=== PATIENT | male | born 1940 | race African-American/Black ===

== ENCOUNTER 2019-08-31 21:47 | Inpatient (IN) | payer MEDICARE, OTHER ==
[~2019-08-31] VITALS: Ht 167.6 cm; Wt 84.4 kg
[2019-08-31 22:00] VITALS: BP 101/65
--- NOTE | 2019-08-31 22:30 | NUR ---
GEM CUTTERRN CARDIOVASCULAR NOTES PATIENT TRANSFERRED FROM [facility] ER VIA AMBULANCE. RECEIVED REPORT FROM HEAD COUNSELOR, MARCELLO, AT 2030. ALERT & ORIENTED X 2-3. LEFT SIDED WEAKNESS PRESENT. NO FACIAL DROOPING NOTED. LEFT EYE DEVIATES SLIGHTLY. WEAK FISH TENDER ON LEFT ARM. WEAKNESS IN LEFT LEG. IV PRESENT ON RIGHT WRIST, SIZE 22, INTACT & PATENT, HEP LOCK. VITAL SIGNS - BP: 101/65 HR: 73 RR: 18 TEMP: 98.6 SPO2: 96 ON ROOM AIR. SKIN ABRASION NOTED ON LEFT IZQUIERDO. PICTURES TAKEN AND PLACED IN CHART. BELONGING'S LIST COMPLETED AND PLACED IN CHART. NO S/S OF ACUTE RESPIRATORY DISTRESS OR SOB. NO COMPLAINTS OF PAIN AT THIS TIME. BED SET IN LOWEST POSITION & LOCKED, SEMI-MONTGOMERY'S POSITION, SIDE RAILS UP X3, CALL LIGHT WITHIN REACH. WILL CONTINUE TO MONITOR.
[2019-08-31 22:40] VITALS: BP 101/65
[2019-09-01] VITALS (7 sets, daily range): BP systolic 102–131; BP diastolic 46–96
[2019-09-01] MEDS ORDERED: hydrALAZINE HCL IV 20 MG VIAL IV PRN
[2019-09-01] MEDS ORDERED: MAGNESIUM HYDROXIDE 30 ML UDC PO PRN
[2019-09-01] MEDS ORDERED: ACETAMINOPHEN 325 MG TABLET PO PRN
[2019-09-01] MEDS ORDERED: ONDANSETRON HCL/PF 4 MG/2 ML VIAL IVP PRN
[2019-09-01] MEDS ORDERED: MAG HYDROX/AL HYDROX/SIMETH 30 ML UDC PO PRN
[2019-09-01] MEDS ORDERED: HYDROCODONE/APAP 5/325MG 1 EACH TABLET PO PRN
[2019-09-01] MEDS ORDERED: ZOLPIDEM TARTRATE 5 MG TABLET PO PRN
[2019-09-01] MEDS ORDERED: Z GUARD REMEDY 2 OZ OINT TP PRN
[2019-09-01] MEDS ORDERED: METO-357 PO (00:04)
[2019-09-01] MEDS ORDERED: RANI300T4 PO (00:04)
[2019-09-01] MEDS ORDERED: WARF10TA22 PO (00:04)
[2019-09-01] MEDS ORDERED: LISI2.5T2 PO (00:04)
[2019-09-01] MEDS ORDERED: FOLIC ACID (00:04)
[2019-09-01] MEDS ORDERED: HYDR50CA5 PO (00:04)
[2019-09-01] MEDS ORDERED: WARF2.5T85 PO (00:04)
[2019-09-01] MEDS: ATORVASTATIN 40 MG TABLET PO SCH ×2 (00:39→21:04)
--- NOTE | 2019-09-01 06:51 | NUR ---
OPTICIAN APPRENTICE CLOSING NOTES PATIENT SLEEPING IN BED, EASY TO AWAKEN. ALERT & ORIENTED X 2-3. ON ROOM AIR. NO S/S OF ACUTE RESPIRATORY DISTRESS AND NO COMPLAINTS OF PAIN AT THIS TIME. TELE MONITOR READING SINUS RHYTHM, HR: 73. IV PRESENT ON RIGHT WRIST, SIZE 22, HEP LOCKED. BED SET IN LOWEST POSITION AND LOCKED, SIDE RAILS UP X2, CALL LIGHT WITHIN REACH. WILL ENDORSE TO DAY SHIFT NURSE TO FOLLOW PLAN OF CARE.
[2019-09-01 06:53] LABS: BASOPHILS % (AUTO) 0.7 % (0.0-2.0); EOSINOPHILS % (AUTO) 1.2 % (0.0-6.0); HEMATOCRIT 44 % (39-51); HEMOGLOBIN 14.5 g/dL (13.5-17.5); LYMPHOCYTES % (AUTO) 33.5 % (20.0-44.0); MEAN CORPUSCULAR HGB CONC 33 g/dl (31.0-36.0); MEAN CORPUSCULAR VOLUME 88 fL (80-96); MONOCYTES # (AUTO) 0.9 /CMM (0.1-1.30); MONOCYTES % (AUTO) 15.7 % (2.0-12.0); NEUTROPHILS # (AUTO) 2.9 /CMM (1.8-8.9); NEUTROPHILS % (AUTO) 48.9 % (43.0-81.0); PLATELET COUNT (AUTO) 201 /CMM (150-450); RED BLOOD CELL COUNT(AUTO) 4.93 MIL/uL (4.5-6.0); WHITE BLOOD COUNT (AUTO) 5.9 K/uL (4.3-11.0)
[2019-09-01 07:08] LABS: ALBUMIN 3.3 g/dL (3.4-5.0); BILIRUBIN,TOTAL 0.6 mg/dL (0.2-1.0); CALCIUM, SERUM 9.4 mg/dL (8.5-10.1); CREATININE 1.2 mg/dL (0.6-1.3); MAGNESIUM 2.2 mg/dL (1.8-2.4); PHOSPHORUS 2.5 mg/dL (2.5-4.9); POTASSIUM 4.1 mmol/L (3.5-5.1); TOTAL PROTEIN, SERUM 8.8 g/dL (6.4-8.2)
[2019-09-01 07:17] LABS: THYROID STIMULATING HORMONE 1.782 uIU/mL (0.358-3.74)
--- NOTE | 2019-09-01 07:30 | NUR ---
ROLLER SETTER NOTES PATIENT AWAKE IN BED, IN NO RESPIRATORY DISTRESS, NO C/O PAIN AT THIS TIME. PATIENT ON DIGITAL MEDIA STRATEGIST READING SR 84. SKIN WARM TO TOUCH. IV SL ON THE RT WRIST #22G, INTACT AND PATENT. PATIENT'S NEEDS ATTENDED, BED ON LOWEST LOCKED POSITION. WILL CONTINUE TO MONITOR.
[2019-09-01] MEDS: ASPIRIN EC 81 MG TABLET.DR PO SCH (09:06)
[2019-09-01] MEDS: LEVETIRACETAM (250 MG) 250 MG TABLET PO SCH ×2 (09:06→20:18)
[2019-09-01] MEDS: ENOXAPARIN SODIUM 40 MG/0.4 ML DISP.SYRIN SQ SCH (09:07)
--- NOTE | 2019-09-01 14:43 | NUR ---
employment services director consult requested for stroke. Pt is a 79 year old male admitted to [facility] for possible stroke. Pt currently lives with four roommates at [address] [place] [address], in [place], [facility]; [phone]. Pt did not want to provide information on next of kin or person to notify, and one is not listed on his face sheet. Pt states that he is not and does not have any children. Pt states that he is retired and receives SSI monthly benefits, but was not able to recall the amount. Pt states that he receives support from his roommates for activities of daily living and was receptive to in-home supportive services referrals. MARITA provided pt with information and an application to [facility] IHSS program through the [employer] [Address: [facility] [address], [place] [address]; ]. Pt denies suicidal and homicidal ideation at this time. Pt denies symptoms of depression at this time. PHQ-9 assessment completed. No further social work supervisor needed at this time. SW will remain available should any needs arise.
[2019-09-01] MEDS ORDERED: DONE10TA44 PO (17:41)
[2019-09-01] MEDS ORDERED: CYAN10006 IJ (17:41)
[2019-09-01] MEDS ORDERED: DICLOFENAC GEL (17:41)
[2019-09-01] MEDS ORDERED: CARB-93 PO (17:41)
[2019-09-01] MEDS ORDERED: TRAM50TA2 PO (17:41)
[2019-09-01] MEDS ORDERED: HYDR50TA61 PO (17:41)
--- NOTE | 2019-09-01 18:45 | NUR ---
SALES FORECAST ANALYST NOTES PATIENT AWAKE IN BED, NO RESPIRATORY DISTRESS, NO C/O PAIN AT THIS TIME. PATIENT ON CABLE FORMER READING SR 86. PATIENT'S NEEDS ATTENDED. BED ON LOWEST LOCKED POSITION, CALL LIGHT WITHIN REACH. WILL ENDORSE TO ONCOMING NURSE.
--- NOTE | 2019-09-01 19:28 | NUR ---
MECHANIC ASSISTANT RECEIVE PT IN BED, A/O X 3, SR 84 NO S/S OF DISTRESS, STABLE,. SAFETY MEASURES AT ALL TIMES. WILL CONTINUE TO MONITOR.
[2019-09-01] MEDS ORDERED: WARFARIN SODIUM 1 MG TABLET PO ONE (20:00)
[2019-09-01] MEDS ORDERED: WARFARIN SODIUM 2.5 MG TABLET PO SCH (20:00)
[2019-09-02] VITALS: BP 97/62
[2019-09-02 04:00] VITALS: BP 125/77
--- NOTE | 2019-09-02 06:16 | NUR ---
MS RN PT ASLEEP AND EASILY AWAKEN. RESPIRATIONS EVEN AND UNLABORED. NO S/S OF DISTRESS O2 SAT 100%. NEEDS ATTENDED AND ANTICIPATED, KEPT CLEAN, DRY AND COMFORTABLE. OFFLOAD HEELS AND ELBOWS AT ALL TIMES. ASSISTED REPOSITION EVERY 2 HOURS. SAFETY MEASURES AT ALL TIMES. WILL ENDORSE NEXT SHIFT POC. Addendum: 09/02/19 at 0620 by TINO PROCTOR RN SR 64 HR ON TUBE MILL OPERATOR
--- NOTE | 2019-09-02 07:36 | NUR ---
TEXTED DR. FUENTES FOR MRI APPROVAL.
[2019-09-02 08:00] VITALS: BP 124/79
[2019-09-02 08:02] LABS: BASOPHILS % (AUTO) 0.8 % (0.0-2.0); EOSINOPHILS % (AUTO) 2.8 % (0.0-6.0); HEMATOCRIT 42 % (39-51); HEMOGLOBIN 14.1 g/dL (13.5-17.5); LYMPHOCYTES # (AUTO) 2.3 /CMM (0.8-4.8); LYMPHOCYTES % (AUTO) 40.2 % (20.0-44.0); MEAN CORPUSCULAR HGB CONC 33 g/dl (31.0-36.0); MEAN CORPUSCULAR VOLUME 89 fL (80-96); MONOCYTES # (AUTO) 0.9 /CMM (0.1-1.30); MONOCYTES % (AUTO) 16.2 % (2.0-12.0); NEUTROPHILS # (AUTO) 2.3 /CMM (1.8-8.9); PLATELET COUNT (AUTO) 205 /CMM (150-450); RED BLOOD CELL COUNT(AUTO) 4.77 MIL/uL (4.5-6.0); WHITE BLOOD COUNT (AUTO) 5.7 K/uL (4.3-11.0)
[2019-09-02 08:16] LABS: CREATININE 1.3 mg/dL (0.6-1.3); POTASSIUM 4.2 mmol/L (3.5-5.1)
[2019-09-02] MEDS: LEVETIRACETAM (250 MG) 250 MG TABLET PO SCH ×2 (09:57→22:19)
[2019-09-02] MEDS: ASPIRIN EC 81 MG TABLET.DR PO SCH (09:57)
[2019-09-02] MEDS: ENOXAPARIN SODIUM 40 MG/0.4 ML DISP.SYRIN SQ SCH (09:58)
[2019-09-02 14:19] LABS: EOSINOPHILS % (MANUAL) 4 % (0-4); LYMPHOCYTES % (MANUAL) 32 % (16-48); MONOCYTES % (MANUAL) 13 % (0-11.0); NEUTROPHILS % (MANUAL) 51 (42-76)
[2019-09-02 16:00] VITALS: BP 115/65
[2019-09-02] MEDS ORDERED: WARFARIN SODIUM 1 MG TABLET PO SCH (17:00)
--- NOTE | 2019-09-02 17:13 | NUR ---
CAT DOG OR OTHER PET GROOMER NOTES [facility] CALLED REGARDING PATIENT'S MRI RESULTS, GAVE [facility]'S NUMBER FOR DR. MARADIAGA TO SPEAK TO DR. SEGURA REGARDING THE FINDINGS.
--- NOTE | 2019-09-02 18:16 | NUR ---
MOTION PICTURE SCENE BUILDER NOTES SPOKE TO DR. SEGURA REGARDING PATIENT'S MRI RESULTS. PER MD ORDER DISCONTINUE LOVENOX 40MG.
--- NOTE | 2019-09-02 19:20 | NUR ---
RN NOTES/ASSESSMENT: RECEIVED REPORT FROM WILLA BYERS. PT IN BED, AWAKE, A/O X1-2, NEED FREQUENT REORIENTATION, ABLE TO MAKE HER NEEDS KNOWN. . PT HAS LEFT SIDED WEAKNESS. RESULT OF BRAIN MRI RELAYED BY DAY RN TO MD DR SEGURA AND NEURO DR FULTON. PT ON TELE MONITORING PT SINUS RHYTHM WITH BBB HR 73. SAFETY PRECAUTIONS FOR FALL INITIATED, CALL LIGHT IN REACH, WILL CONTINUE MONITORING PT.
--- NOTE | 2019-09-02 19:20 | NUR ---
SLATE SPLITTER NOTES PATIENT RESTING IN BED, NO RESPIRATORY DISTRESS, NO C/O PAIN AT THIS TIME. REFRIGERATION MECHANIC HELPER READING SR 74. PATIENT'S SCDS ON. SKIN WARM TO TOUCH. IV ACCESS SITE INTACT AND PATENT. PATIENT'S NEEDS ATTENDED, BED ON LOWEST LOCKED POSITION, CALL LIGHT WITHIN REACH. WILL ENDORSE TO ONCOMING NURSE.
--- NOTE | 2019-09-02 19:53 | NUR ---
rn notes: received call from dr guzman /neuro regarding result of brain mri. per md, he already spoked with dr arthur regarding result, informed about result of pt inr on sep 01, and sep 02, 2019. per md awaiting for cardio consult if pt will be continued on lovenox or coumadin. no further orders received.
[2019-09-02 20:00] VITALS: BP 126/93
--- NOTE | 2019-09-02 21:00 | NUR ---
rn notes: placed on seizure precaution, side rails padded, suction set up secured
[2019-09-02] MEDS: ATORVASTATIN 40 MG TABLET PO SCH (22:19)
--- NOTE | 2019-09-02 22:23 | NUR ---
RN NOTES/MED ADMINISTRATION; ALL DUE MEDS ADMINISTERED, TEACHING ABOUT MEDICATION ACTION AND SIDE EFFECTS PROVIDED. PLACED ON HIGH FOWLERS POSITION, ASPIRATION PRECAUTION INITIATED. PT TOOK MEDICATION, ABLE TO SWALLOW PILLS WITH APPLE SAUCE, DRINK APPLE JUICE WITHOUT ANY STRAW. KEPT UPRIGHT TO PREVENT CHOKING.
[2019-09-03 00:07] VITALS: BP 97/63
--- NOTE | 2019-09-03 02:31 | NUR ---
RN NOTES/IV INSERTION: PREVIOUS IV ACCESS OCCLUDED, UNABLE TO FLUSH WITH NS. REMOVE, AND PRESSURED DRESSING APPLIED. RESTARTED NEW LINE ON RIGHT AC G 22, GOOD BLOOD RETURN NOTED, TEGADERM DRESSING APPLIED, PROPER LABELS ATTACHED, PLACED ON HL.
[2019-09-03 04:00] VITALS: BP 147/93
--- NOTE | 2019-09-03 06:49 | NUR ---
EOSS: PT REMAINS A/O X2-3, FREQUENT REORIENTATION PROVIDED. IV ACCESS REMAINS PATENT AND FLUSHING WELL, ON HL. NO S/S OF INFILTRATION NOTED. PT REMAINS WITH LEFT SIDED WEAKNESS (ARM AND LEGS), LEFT HAND INTERACTIVE WEB DEVELOPER IS LESSER STRENGTH THAN RIGHT HAND.NO S/S OF ACTIVE BLEEDING NOTED. NIHSS PERFORMED Q4HRS PER PROTOCOL. NO SLURRED SPEECH NOTED. NO FURTHER WEAKNESS NOTED. REMAINS ON SINUS RHYTHM WITH BBB HR 77. VS REMAINS STABLE, NEEDS ATTENDED. SAFETY PRECAUTIONS FOR FALL REMAINS ENGAGED, CALL LIGHT IN REACH, WILL ENDORSE TO DAY RN FOR CONTINUITY OF CARE.
--- NOTE | 2019-09-03 07:50 | NUR ---
[employer] OFFICER OPENING NOTES RECEIVED PATIENT IN BED, AWAKE, A/O X2. PATIENT ON ROOM AIR BREATHING NORMALLY WITH NO S/S OF DISTRESS OR SOB NOTED AT THIS TIME. PATIENT IS ON TELE MONITORING SHOWING SR WITH BBB AND PVC IN MID 70S. RIGHT AC GAUGE # 22 INTACT AND FLUSHING WELL WITH NO SIGNS OF INFILTRATION NOTED AT THIS TIME. SAFETY PRECAUTIONS IN PLACE: BED IN LOW POSITION AND LOCKED, RAILS UP X 2, CALL LIGHT WITHIN REACH. WILL CONTINUE TO MONITOR PATIENT.
[2019-09-03] MEDS: LEVETIRACETAM (250 MG) 250 MG TABLET PO SCH ×2 (08:19→21:44)
[2019-09-03] MEDS: ASPIRIN EC 81 MG TABLET.DR PO SCH (08:19)
[2019-09-03 08:22] LABS: BASOPHILS % (AUTO) 0.6 % (0.0-2.0); EOSINOPHILS % (AUTO) 3.4 % (0.0-6.0); HEMATOCRIT 42 % (39-51); HEMOGLOBIN 13.8 g/dL (13.5-17.5); LYMPHOCYTES # (AUTO) 1.7 /CMM (0.8-4.8); LYMPHOCYTES % (AUTO) 32.7 % (20.0-44.0); MEAN CORPUSCULAR HGB CONC 33 g/dl (31.0-36.0); MEAN CORPUSCULAR VOLUME 89 fL (80-96); MONOCYTES # (AUTO) 0.8 /CMM (0.1-1.30); MONOCYTES % (AUTO) 16.3 % (2.0-12.0); NEUTROPHILS # (AUTO) 2.4 /CMM (1.8-8.9); PLATELET COUNT (AUTO) 208 /CMM (150-450); RED BLOOD CELL COUNT(AUTO) 4.73 MIL/uL (4.5-6.0); WHITE BLOOD COUNT (AUTO) 5.1 K/uL (4.3-11.0)
[2019-09-03 08:28] LABS: CALCIUM, SERUM 8.8 mg/dL (8.5-10.1); CREATININE 1.2 mg/dL (0.6-1.3); POTASSIUM 3.8 mmol/L (3.5-5.1)
[2019-09-03 08:40] VITALS: BP 129/83
--- NOTE | 2019-09-03 09:09 | NUR ---
METAL AND PLASTIC HEATER NOTES PT SEEN AND EXAMINED BY DR. SEGURA, PLAN OF CARE DISCUSSED WITH PT, CONTINUE COUMADIN PER MD.
[2019-09-03 09:36] LABS: BAND % (MANUAL) 1 % (0.0-5.0); LYMPHOCYTES % (MANUAL) 35 % (16-48); MONOCYTES % (MANUAL) 16 % (0-11.0); NEUTROPHILS % (MANUAL) 48 (42-76)
--- NOTE | 2019-09-03 13:04 | NUR ---
HEADING MATCHER AND ASSEMBLER NOTES RECEIVED CALL FROM DR. SEGURA TO D/C COUMADIN AND START ELIQUIS, NOTED AND CARRIED OUT.
[2019-09-03 16:40] VITALS: BP 132/75
[2019-09-03] MEDS: APIXABAN 5 MG TABLET PO SCH (18:30)
--- NOTE | 2019-09-03 18:53 | NUR ---
PROFESSOR OF FINE ART CLOSING NOTES PATIENT IN BED, AWAKE, A/O X 1, FORGETFUL, REQUIRES FREQUENT REORIENTATION. PATIENT ON RA BREATHING EVENLY WITH NO ACUTE SIGNS OF DISTRESS NOTES. VS ARE STABLE. TELE MONITOR SHOWS SR IN THE 75. IV SITE ON R AC GAUGE # 22 IS PATENT AND INTACT, FLUSHING WELL. SAFETY MEASURES MAINTAINED: BED IN LOW POSITION AND LOCKED, RAILS UP X 3, CALL LIGHT WITHIN REACH. WILL ENDORSE TO PRODUCE SERVICE TEAM MEMBER NURSE.
--- NOTE | 2019-09-03 19:20 | NUR ---
RN NOTES/ASSESSMENT: RECEIVED REPORT FROM FIDENCIO BYERS. PT IN BED, AWAKE, A/O X2, ABLE TO MAKE HIS NEEDS KNOWN . PT HAS LEFT SIDED WEAKNESS. NOTED LEFT LEG AND LEFT ARM WEAKNESS, BASELINE. PT ON TELE MONITORING PT SINUS RHYTHM WITH BBB HR 77, WITH OCCASIONAL PVC. URINAL WITHIN REACH, SUCTION SET UP SECURED, SEIZURE PRECAUTIONS. SAFETY PRECAUTIONS FOR FALL INITIATED, CALL LIGHT IN REACH, WILL CONTINUE MONITORING PT.
[2019-09-03 20:00] VITALS: BP 121/84
--- NOTE | 2019-09-03 20:10 | NUR ---
rn notes/nihss: nihss score 8, made aware no new changes from previous assessment. no new weakness identified.
[2019-09-03] MEDS: ATORVASTATIN 40 MG TABLET PO SCH (21:44)
--- NOTE | 2019-09-03 21:44 | NUR ---
rn notes/med administration: all due meds administered, prune juice provided per pt request. kept on aspiration precautions.
[2019-09-04] VITALS: BP 134/88
[2019-09-04 04:00] VITALS: BP 130/87
--- NOTE | 2019-09-04 06:47 | NUR ---
EOSS: PT REMAINS WITH LEFT SIDED WEAKNESS (ARM AND LEGS), LEFT HAND MEDICAL CODING INSTRUCTOR IS LESSER STRENGTH THAN RIGHT HAND, REMAINS A/O X2, FREQUENT REORIENTATION PROVIDED. REMAINS ON SINUS RHYTHM WITH BBB HR 77. SEIZURE PRECAUTION AND ASPIRATION PROTOCOL FOLLOWED. IV ACCESS REMAINS PATENT AND FLUSHING WELL, ON HL. NO S/S OF INFILTRATION NOTED.NO S/S OF ACTIVE BLEEDING NOTED. NIHSS PERFORMED Q4HRS PER PROTOCOL. VS REMAINS STABLE, NEEDS ATTENDED. SAFETY PRECAUTIONS FOR FALL REMAINS ENGAGED, CALL LIGHT IN REACH, WILL ENDORSE TO DAY RN FOR CONTINUITY OF CARE.
[2019-09-04 07:30] LABS: BASOPHILS % (AUTO) 0.7 % (0.0-2.0); EOSINOPHILS % (AUTO) 2.5 % (0.0-6.0); HEMATOCRIT 44 % (39-51); HEMOGLOBIN 14.4 g/dL (13.5-17.5); LYMPHOCYTES # (AUTO) 2.1 /CMM (0.8-4.8); LYMPHOCYTES % (AUTO) 34.3 % (20.0-44.0); MEAN CORPUSCULAR HGB CONC 33 g/dl (31.0-36.0); MEAN CORPUSCULAR VOLUME 89 fL (80-96); MONOCYTES # (AUTO) 0.8 /CMM (0.1-1.30); MONOCYTES % (AUTO) 13.4 % (2.0-12.0); NEUTROPHILS % (AUTO) 49.1 % (43.0-81.0); PLATELET COUNT (AUTO) 197 /CMM (150-450); RED BLOOD CELL COUNT(AUTO) 4.94 MIL/uL (4.5-6.0); WHITE BLOOD COUNT (AUTO) 6.2 K/uL (4.3-11.0)
[2019-09-04 07:42] LABS: CALCIUM, SERUM 9.1 mg/dL (8.5-10.1); CREATININE 1.2 mg/dL (0.6-1.3); POTASSIUM 4.1 mmol/L (3.5-5.1)
[2019-09-04 08:00] VITALS: BP 131/82
[2019-09-04] MEDS ORDERED: ATOR40TA PO (09:42)
[2019-09-04] MEDS ORDERED: LEVE250T2 PO (09:42)
[2019-09-04] MEDS ORDERED: APIX5TAB PO (09:42)
[2019-09-04] MEDS ORDERED: ASPI-1152 PO (09:42)
[2019-09-04] MEDS: ASPIRIN EC 81 MG TABLET.DR PO SCH (10:02)
[2019-09-04] MEDS: LEVETIRACETAM (250 MG) 250 MG TABLET PO SCH (10:03)
[2019-09-04] MEDS: APIXABAN 5 MG TABLET PO SCH ×2 (10:04→17:51)
--- NOTE | 2019-09-04 10:31 | NUR ---
WOUND CARE CONSULT: PT PRESENTS WITH INCONTINENCE AND SCARRING TO LOWER LEGS, ESPECIALLY LEFT LOWER LEG, PRESENT ON ADMISSION. LEFT LOWER LEG NOTED TO BE LARGER THAN RT. RECOMMENDATIONS MADE FOR SKIN PROTECTION. DISCUSSED WITH NURSING STAFF. WILL SEE PRN. CURRENT CANDY SCORE IS 15. Addendum: 09/04/19 at 1033 by FLAQUITA NICHOLS WNDNU Amended: Links added.
[2019-09-04] MEDS ORDERED: GADOTERIDOL 279.3 MG/ML VIAL IV ONE (14:57)
[2019-09-04 16:00] VITALS: BP 113/77
--- NOTE | 2019-09-04 17:09 | NUR ---
MS RN NOTES CALLED MIGUEL BYERS AT [facility] GIVEN REPORT. WOUND PICTURES TAKEN IN THE CHART. PATIENT I SCHEDULED TO SEND TO [facility] BY AMBULANCE.
--- NOTE | 2019-09-04 18:15 | NUR ---
RIM ROLLER OPERATOR NOTES PATIENT LEFT 3 WEST BY AMBULANCE. STABLE. BROADBAND TECHNICIAN AND IV REMOVED.PATIENT TRANSF[facility]. BELONGINGS AND MEDS RETURNED TO PATIENT.
== END 2019-09-04 18:30 | DRG 64 ==
LOC: TELE 22:24
PROVIDERS: ADMIT Hospitalist; ATTEND Family Medicine
DX: I63.89 Other cerebral infarction (principal); G93.41 Metabolic encephalopathy; I69.354 Hemiplegia and hemiparesis following cerebral infarction affecting left non-dominant side; F03.90 Unspecified dementia, unspecified severity, without behavioral disturbance, psychotic disturbance, mood disturbance, and anxiety; R40.2413 Glasgow coma scale score 13-15, at hospital admission; R29.708 NIHSS score 8
CPT/HCPCS: 36415; 70553-TC; 80048-TC; 80053-TC; 80061-TC; 83735-TC; 84100-TC; 84443-TC; 84484-TC; 85025-TC; 85610-TC; 87081-TC; 92611-TC; 97112-TC; 97530-TC; A9579; G0378; J1650